=== PATIENT | female | born 1985 | race Caucasian/White ===

== ENCOUNTER 2019-07-31 10:10 | Emergency (ER) | payer MEDICAID, OTHER ==
--- OUTSIDE RECORDS SUMMARY | 2019-07-31 10:24 | XMS REPORT | Continuity of Care Document ---
:1985 External Reference #:[id number] Demographics Address 6 11/26 [facility] [address] [place] [address] Home Phone [phone] Mobile Phone [phone] Email Address Preferred Language en Marital Status Not or Muslim Affiliation Unknown Race White Ethnic Group Not or Author Name Ravinder Horta MD Address [address] [place] [address] Care Team Providers Name Role Phone Kat Zhou NP - Family Care Team Information [employer] Counsel[employer] Problems Description No Information Available Social History Type Date Description Comments Sex Unknown Smokeless Tobacco Never Used Smokeless Tobacco ETOH Use Rarely consumes alcohol Tobacco Use Start: Unknown End: Patient is a former smoker QUIT 2014 Unknown Recreational Drug Use Denies Drug Use Allergies, Adverse Reactions, Alerts Description No Known Drug Allergies Medications Active Medications SIG Qnty Indications Ordering Date Provider Beano 1 tab by mouth 90tabs R14.0 Ravinder Horta, 07/09/2019 Tablets three times a day MD before meals Lactaid Fast Act 1 tab by mouth 90tabs R14.0 Ravinder Horta, 07/09/2019 9000Unit three times a day Tablets with meals Omeprazole 1 by mouth every Unknown 40mg Capsules day DR Betamethasone a/d prn Unknown Dipropionate Aug 0.05% Gel Fluoxetine HCL (PMDD) 1 by mouth every Unknown day 20mg Capsules Prazosin HCL 1 at bedtime Unknown 1mg Capsules Hydroxyzine HCL take one tablet Unknown 10mg by mouth three Tablets times a day as needed for anxiety Tizanidine HCL 1 by mouth three Unknown 4mg times a day as Capsules needed mdd 3 Nuvaring 1 each vaginally Unknown qmonth 0.12-0.015mg/24HR Ring Immunizations Description No Information Available Vital Signs Date Vital Result Comment 07/09/2019 11:51am BP Systolic Sitting Left Arm 110 mmHg BP Diastolic Sitting Left Arm 80 mmHg Heart Rate 94 /min Respiratory Rate 16 /min Height 64 inches 5'4" Weight 175.00 lb BMI (Body Mass Index) 30.0 kg/m2 BSA (Body Surface Area) 1.85 m2 [place] body weight in kilograms 54 kg O2 % BldC Oximetry 98 % Ra Results Description No Information Available Procedures Description No Information Available Medical Devices Description No Information Available Encounters Description No Information Available Assessments Date Code Description Provider 07/09/2019 R12 Heartburn Ravinder Horta MD 07/09/2019 R14.0 Abdominal distension (gaseous) Ravinder Horta MD Plan of Treatment 07/09/2019 - Ravinder Horta MDR12 HeartburnComments:heartburn for yearscontrolled on high dose PPI arrange for EGDR14.0 Abdominal distension ( gaseous)New Medication:Beano - 1 tab by mouth three times a day before mealsLactaid Fast Act 9000 Unit - 1 tab by mouth three times a day with mealsComments:[facility] history of CrohnsLow fodmaps dietlactaid and beano Functional Status Description No Information Available Mental Status Description No Information Available Referrals Description No Information Available
[2019-07-31 11:20] VITALS: BP 123/87
--- NOTE | 2019-07-31 11:21 | UC ---
Throat Pain/Nasal Ernesto HPI - HPI Summary HPI Summary: 34 y/o female presents to the urgent care c/o sore throat, dry cough, clear moderate PND, body aches, BYRD since last night. Pt reports chills, but not fever. She took Ibuprofen 400mg PO last night. Her boyfriend has similar symptoms. Pt has Hx of seasonal allergies, but are usually triggered in spring. Pt denies SOB, wheezing, chest pain, abdominal pain, N/V/D, rash or neck pain. - History of Current Complaint Chief Complaint: UCRespiratory Stated Complaint: COUGH,ACHY,BYRD Time Seen by Provider: 07/31/19 11:14 Hx Obtained From: Patient Hx Last Menstrual Period: 07/22/19 ?: No Onset/Duration: Gradual Onset, Lasting Days - 1 day, Still Present, Worse Since - this morning w/ body ahces, BYRD, and sore throat Severity: Moderate Pain Intensity: 8 - sore throat Pain Scale Used: 0-10 Numeric Cough: Nonproductive Associated Signs & Symptoms: Positive: Sinus Discomfort, Nasal Discharge - clear. Negative: Dysphagia, Wheezing, Fever, Vomiting Related History: Seasonal Allergies - Epiglottits Risk Factors Epiglottis Risk Factors: Negative - Allergies/Home Medications Allergies/Adverse Reactions: Allergies Allergy/AdvReac Type Severity Reaction Status Date / Time adhesive tape Allergy SKIN Verified 07/31/19 11:14 IRRITATION Home Medications: Home Medications FLUoxetine CAP* [Prozac CAP*] 20 mg BEDTIME 07/31/19 [History Confirmed 07/31/19 ] Omeprazole 1 cap QAM 07/31/19 [History Confirmed 07/31/19] Prazosin CAP* [Minipress CAP*] 1 mg PO QPM 07/31/19 [History Confirmed 07/31/19] tiZANidine TAB* [Zanaflex TAB*] 1 tab TID PRN 07/31/19 [History Confirmed ] PMH/Surg Hx/FS Hx/Imm Hx Previously Healthy: Yes Other GI/ History: IBS - Surgical History Surgical History: Yes Surgery Procedure, Year, and Place: 2X C SECTIONS. LUMP REMOVED RIGHT BREAST. PILONIDAL CYST REMOVE. MIRENA HAD TO REMOVED SURGICAL FROM ABDOMINAL WALL. WISDOM TEETH - Family History Known Family History: Positive: Cardiac Disease, Diabetes Family History: UC and Cronhs - Social History Occupation: Employed Full-time Lives: With Family Alcohol Use: Rare Substance Use Type: None Smoking Status (MU): Never Smoked Tobacco - Immunization History Most Recent Tetanus Shot: UTD Review of Systems All Other Systems Reviewed And Are Negative: Yes Constitutional: Positive: Fatigue, Other - body aches Skin: Positive: Negative Eyes: Positive: Negative ENT: Positive: Sore Throat, Nasal Discharge - clear, Sinus Congestion, Other - moderate PND Respiratory: Positive: Cough - dry Cardiovascular: Positive: Negative Gastrointestinal: Positive: Negative Genitourinary: Positive: Negative Motor: Positive: Negative Neurovascular: Positive: Negative Musculoskeletal: Positive: Negative Neurological: Positive: Headache Psychological: Positive: Negative Is Patient Immunocompromised?: No Physical Exam - Summary Physical Exam Summary: VITAL SIGNS: Reviewed. GENERAL: Patient is a well developed and nourished female who is sitting comfortably in the examining table. Patient is not in any acute respiratory distress. HEAD AND FACE: No signs of trauma. No ecchymosis, hematomas or skull depressions. No sinus tenderness. EYES: PERRLA, EOMI x 2, No injected conjunctiva, no nystagmus. No photophobia. EARS: Hearing grossly intact. Ear canals and tympanic membranes are within normal limits. MOUTH: Positive pharynx with mild erythema, no exudates, No B/L tonsillar enlargement , no exudate. Uvula in midline. edematous nasal mucosa w/ clear nasal discharge, clear PND NECK: Supple, trachea is midline, Positive anterior cervical lymphadenopathy, no JVD, no carotid bruit, no c-spine tenderness, neck with full ROM. No meningeal signs, no Kernig's or brudzinskis signs. CHEST: Symmetric, no tenderness at palpation LUNGS: Clear to auscultation bilaterally. No wheezing or crackles. CVS: Regular rate and rhythm, S1 and S2 present, no murmurs or gallops appreciated. ABDOMEN: Soft, non-tender. No signs of distention. No rebound no guarding, and no masses palpated. Bowel sounds are normal. EXTREMITIES: FROM in all major joints, no edema, no cyanosis or clubbing. NEURO: Alert and oriented x 3. No acute neurological deficits. Pt follows commands. SKIN: Dry and warm Triage Information Reviewed: Yes Vital Signs: Initial Vital Signs Temp 97.7 F 07/31/19 11:16 Pulse 84 09/06/19 11:16 Resp 16 07/31/19 11:16 BP 123/87 07/31/19 11:16 Pulse Ox 100 07/31/19 11:16 Throat Pain/Nasal Course/Dx - Course Course Of Treatment: 34 y/o female presents to the urgent care c/o sore throat, dry cough, clear moderate PND, body aches, BYRD since last night. Pt reports chills, but not fever. She took Ibuprofen 400mg PO last night. Her boyfriend has similar symptoms. Pt has Hx of seasonal allergies, but are usually triggered in spring. Pt denies SOB, wheezing, chest pain, abdominal pain, N/V/D, rash or neck pain. Hx obtained. Pt w/ URI on examination. Rapid strep ordered, result: negative. Rapid Influenza A&B: negative.Pt given Tylenol PO by nurse for pain. Pt tolerated well medication and felt better. Pt advised to continue w/ ibuprofen por Tylenol PO to alleviates symptoms of pain and swelling and take Robitussin to alleviate cough. Advised on hand washing to avoid spreading. Pt advised to rest, eat well and avoid strenuous exercise. If symptoms do not improve or worsen advised to return to the urgent care or f/u with her PCP in 2-3 days for further evaluation and treatment. Pt understood and agreed w/ plan of care - Differential Dx/Diagnosis Differential Diagnosis/HQI/PQRI: Laryngitis, Mononucleosis, Pharyngitis, Sinusitis, Tonsillitis, URI Provider Diagnosis: Upper respiratory infection, acute Discharge ED - Sign-Out/Discharge Documenting (check all that apply): Patient Departure - D/C home All imaging exams completed and their final reports reviewed: No Studies - Discharge Plan Condition: Stable Disposition: HOME Patient Education Materials: Upper Respiratory Infection (ED) Referrals: Page Julien MD [Primary Care Provider] - 2 Days Additional Instructions: 1-Rapid strep and Influenza A&B are negative. 2-Please continue taking ibuprofen or Tylenol PO q6-8hrs prn as instructed after meals to alleviate pain and swelling. Increase fluid intake, eat well, rest and avoid strenuous exercise 3- Take Robitussin or Delsym to alleviate cough. 4-If symptoms do not improve or worsen please return to the urgent care or f/u with your PCP in 2-3 days for further evaluation and treatment. - Billing Disposition and Condition Condition: STABLE Disposition: Home
[2019-07-31] MEDS ORDERED: Acetaminophen TAB* 325 MG PO ONE (11:32)
[2019-07-31 11:48] LABS: Influenza A Molecular NEGATIVE (Negative); Influenza B Molecular NEGATIVE (Negative)
== END 2019-07-31 12:05 | disposition home or self-care (01) ==
LOC: UCCORT 10:10
DX: J06.9 Acute upper respiratory infection, unspecified (principal)
CPT/HCPCS: 87651; 99212; A9270-GY; G0463

== ENCOUNTER 2019-08-12 16:31 | Emergency (ER) | payer OTHER ==
[2019-08-12 16:59] VITALS: BP 118/79
--- NOTE | 2019-08-12 17:55 | UC ---
Throat Pain/Nasal Ernesto HPI - HPI Summary HPI Summary: 34-year-old woman comes in with a chief complaint of 2 weeks of upper respiratory tract infection symptoms. She has rhinorrhea sore throat cough chest congestion. Is occasional wheezing. She has no history of asthma. She' s been having fevers ibuprofen and some fevers. - History of Current Complaint Chief Complaint: UCRespiratory Stated Complaint: ST,COUGH,FEVER Time Seen by Provider: 08/12/19 17:15 Hx Last Menstrual Period: 07/20/19 Pain Intensity: 8 - Allergies/Home Medications Allergies/Adverse Reactions: Allergies Allergy/AdvReac Type Severity Reaction Status Date / Time No Known Allergies Allergy Verified 08/12/19 16:52 PMH/Surg Hx/FS Hx/Imm Hx Previously Healthy: Yes - Surgical History Surgical History: Yes Surgery Procedure, Year, and Place: 2X C SECTIONS. LUMP REMOVED RIGHT BREAST. PILONIDAL CYST REMOVE. MIRENA HAD TO REMOVED SURGICAL FROM ABDOMINAL WALL. WISDOM TEETH - Family History Known Family History: Positive: Cardiac Disease, Diabetes Family History: UC and Cronhs - Social History Alcohol Use: Rare Substance Use Type: None Smoking Status (MU): Never Smoked Tobacco - Immunization History Most Recent Tetanus Shot: UTD Review of Systems All Other Systems Reviewed And Are Negative: Yes Constitutional: Positive: Fever, Other - SEE HPI Skin: Positive: Negative Eyes: Positive: Negative ENT: Positive: Sore Throat, Nasal Discharge, Sinus Congestion Respiratory: Positive: Shortness Of Breath, Cough, Other - SEE HPI Cardiovascular: Positive: Negative Gastrointestinal: Positive: Negative Motor: Positive: Negative Neurovascular: Positive: Negative Musculoskeletal: Positive: Negative Neurological: Positive: Negative Psychological: Positive: Negative Is Patient Immunocompromised?: No Physical Exam Triage Information Reviewed: Yes Appearance: No Pain Distress, Well-Nourished, Ill-Appearing - MILD Vital Signs: Initial Vital Signs Temp 97.8 F 08/12/19 16:54 Pulse 85 08/12/19 16:54 Resp 16 08/12/19 16:54 BP 118/79 08/12/19 16:54 Pulse Ox 100 08/12/19 16:54 Vital Signs Reviewed: Yes Eye Exam: Normal Eyes: Positive: Conjunctiva Clear ENT: Positive: Pharyngeal erythema, Nasal congestion, Nasal drainage, TMs normal Neck: Positive: Supple Respiratory: Positive: Lungs clear, Normal breath sounds, No respiratory distress Cardiovascular: Positive: RRR Musculoskeletal: Positive: Strength Intact, ROM Intact Neurological: Positive: Alert Psychological: Positive: Age Appropriate Behavior Skin Exam: Normal Throat Pain/Nasal Course/Dx - Differential Dx/Diagnosis Provider Diagnosis: Bronchitis with bronchospasm Discharge ED - Sign-Out/Discharge Documenting (check all that apply): Patient Departure All imaging exams completed and their final reports reviewed: No Studies - Discharge Plan Condition: Stable Disposition: HOME Prescriptions: Albuterol HFA INHALER* [Ventolin HFA Inhaler*] 2 puff INH Q4H PRN #1 mdi PRN Reason: Wheezing Azithromyxin WANG (NF) [Z-Wang (Zithromax) 250 mg tabs #6] 2 tab PO .TODAY, THEN 1 DAILY #6 tab Patient Education Materials: Acute Bronchitis (ED), Bronchospasm (ED) Forms: *Work Release Referrals: Page Julien MD [Primary Care Provider] - Additional Instructions: FOLLOW UP WITH YOUR DOCTOR IF NOT COMPLETELY IMPROVED. GO TO THE EMERGENCY DEPARTMENT IF WORSE OR ANY QUESTIONS OR CONCERNS. - Billing Disposition and Condition Condition: STABLE Disposition: Home
== END 2019-08-12 18:10 | disposition home or self-care (01) ==
LOC: UCCORT 16:31
DX: J20.9 Acute bronchitis, unspecified (principal)
CPT/HCPCS: 99212; G0463

== ENCOUNTER 2020-01-30 12:50 | Emergency (ER) | payer OTHER ==
[2020-01-30 13:05] VITALS: BP 140/82
[2020-01-30 13:15] LABS: Influenza A Molecular POSITIVE (Negative)
--- NOTE | 2020-01-30 13:28 | UC ---
FLU HPI - HPI Summary HPI Summary: Body aches, chills, cough, fatigue and runny nose. Denies fever. Started Saturday night. - History of Current Complaint Chief Complaint: UCRespiratory Stated Complaint: FLU SYMP Time Seen by Provider: 01/30/20 13:09 Hx Obtained From: Patient Hx Last Menstrual Period: 07/20/19 ?: No Onset/Duration: Sudden Onset, Lasting Days Severity Currently: Severe Severity Initially: Severe Pain Intensity: 7 Associated Signs & Symptoms: Positive: Myalgia, Cough, Nasal Congestion, Headache - Allergy/Home Medications Allergies/Adverse Reactions: Allergies Allergy/AdvReac Type Severity Reaction Status Date / Time No Known Allergies Allergy Verified 01/30/20 13:01 Home Medications: Home Medications Omeprazole 1 cap PO QAM 07/31/19 [History Confirmed 01/30/20] tiZANidine TAB* [Zanaflex TAB*] 1 tab TID PRN 07/31/19 [History Confirmed ] DULoxetine DR CAP* [Cymbalta CAP*] 60 mg PO DAILY 01/30/20 [History Confirmed ] Phenylephrine/Dm/Acetaminop/GG [Cold & Flu Severe Daytime [id number] mg] 1 tab PO ONCE 01/30/20 [History Confirmed 01/30/20] Topiramate TAB(*) [Topamax 100 mg tab] 100 mg PO BEDTIME 01/30/20 [History Confirmed 01/30/20] PMH/Surg Hx/FS Hx/Imm Hx Previously Healthy: Yes - Surgical History Surgical History: Yes Surgery Procedure, Year, and Place: 2X C SECTIONS. LUMP REMOVED RIGHT BREAST. PILONIDAL CYST REMOVE. MIRENA HAD TO REMOVED SURGICAL FROM ABDOMINAL WALL. WISDOM TEETH - Family History Known Family History: Positive: Cardiac Disease, Diabetes Family History: UC and Cronhs - Social History Alcohol Use: Rare Substance Use Type: None Smoking Status (MU): Never Smoked Tobacco - Immunization History Most Recent Tetanus Shot: UTD Review of Systems All Other Systems Reviewed And Are Negative: Yes Constitutional: Positive: Fatigue ENT: Positive: Sore Throat Respiratory: Positive: Cough Musculoskeletal: Positive: Myalgia Physical Exam Triage Information Reviewed: Yes Appearance: Ill-Appearing, Pain Distress Vital Signs: Initial Vital Signs Temp 97.6 F 01/30/20 13:00 Pulse 84 01/30/20 13:00 Resp 16 01/30/20 13:00 BP 140/82 01/30/20 13:00 Pulse Ox 100 01/30/20 13:00 Vital Signs Reviewed: Yes Eye Exam: Normal ENT Exam: Normal Dental Exam: Normal Neck exam: Normal Neck: Positive: Supple, Nontender, No Lymphadenopathy Respiratory Exam: Normal Respiratory: Positive: Chest non-tender, Lungs clear, Normal breath sounds Cardiovascular Exam: Normal Cardiovascular: Positive: RRR, No Murmur, Pulses Normal Abdominal Exam: Normal Bowel Sounds: Positive: Present Musculoskeletal Exam: Normal Neurological Exam: Normal Psychological Exam: Normal Skin Exam: Normal Flu Course/Dx - Course Course Of Treatment: hx obtained, exam performed ,meds reviewed, flu A positive - Differential Dx/Diagnosis Differential Diagnosis/HQI/PQRI: Influenza Provider Diagnosis: Influenza A Discharge ED - Sign-Out/Discharge Documenting (check all that apply): Patient Departure All imaging exams completed and their final reports reviewed: No Studies - Discharge Plan Condition: Stable Disposition: HOME Patient Education Materials: Influenza (ED) Referrals: Page Julien MD [Primary Care Provider] - Additional Instructions: 1. Increase fluids 2. Get plenty of rest 3. Ibuprofen and tylenol for aches and fever - Billing Disposition and Condition Condition: STABLE Disposition: Home
== END 2020-01-30 13:42 | disposition home or self-care (01) ==
LOC: UCCORT 12:50
DX: J10.1 Influenza due to other identified influenza virus with other respiratory manifestations (principal)
CPT/HCPCS: 99211; G0463